=== PATIENT | female | born 1985 | race Caucasian/White ===

== ENCOUNTER 2020-10-20 14:51 | Emergency (ER) | payer OTHER ==
[~2020-10-20 14:51] MED LIST: TYLENOL #31 EACH PO
[2020-10-20 16:11] LABS: BASOPHIL 0.4 % (0-2); EOSINOPHIL 0.3 % (0-5); HCT 44.9 % (37.0-47.0); HGB 15.1 g/dl (12.5-16.0); MCH 32.1 pg (25.0-31.0); MCHC 33.6 g/dL (32.0-36.0); MCV 95.5 fL (78.0-100.0); MONOCYTE 5.2 % (0-12); MPV 10.8 fL (6.0-9.5); NEUTROPHIL 80.6 % (41-80); NRBC 0; PLT 348 K/uL (150-400); RDW 11.6 % (11.5-14.0); WBC 10.3 K/uL (4.0-10.5)
[2020-10-20 16:17] LABS: INR 0.99 (0.9-1.2); PROTHROMBIN TIME 12.4 SECONDS (11.4-13.6); PTT 27.8 SECONDS (22.2-34.7)
[2020-10-20 16:25] LABS: ALBUMIN 3.7 g/dL (3.4-5.0); BILIRUBIN - TOTAL 0.5 mg/dL (0.2-1.0); BUN/CREAT RATIO (CALC) 12.5 RATIO; CREATININE 0.64 mg/dL (0.51-0.95); GLOBULIN (CALCULATION) 4.2 g/dL; POTASSIUM 3.5 mmol/L (3.5-5.1); TOTAL PROTEIN 7.9 g/dL (6.4-8.2)
[2020-10-20 18:13] LABS: BILIRUBIN NEGATIVE (NEGATIVE); BLOOD 3+ Ery/uL (NEGATIVE); CLARITY CLEAR (CLEAR); COLOR YELLOW (YELLOW); GLUCOSE (U) NORMAL (NORMAL); LEUKOCYTES NEGATIVE Leu/uL (NEGATIVE); NITRITE NEGATIVE (NEGATIVE); PROTEIN NEGATIVE (NEGATIVE); UROBILINOGEN 0.2 mg/dL (0.2-1.0)
[2020-10-20 18:20] LABS: SQUAMOUS EPITHELIAL CELLS RARE
[2020-10-20] MEDS ORDERED: FIORICET1 EACH PO ×2 (18:38→18:40)
== END 2020-10-20 19:59 | disposition home or self-care (01) ==
LOC: FER 14:51
PROVIDERS: Emergency Medicine
DX: G43.909 Migraine, unspecified, not intractable, without status migrainosus (principal); Z98.890 Other specified postprocedural states
CPT/HCPCS: 36415; 70450; 72125; 80053; 81001; 85025; 85610; 85730; J0780; J1170; J1885; J7030